=== PATIENT | male | born 1990 | race Caucasian/White ===

== ENCOUNTER 2018-11-17 11:21 | Emergency (ER) | payer SELFPAY ==
[~2018-11-17] VITALS: Ht 170.2 cm; Wt 81.6 kg
[2018-11-17 11:27] VITALS: BP_SYST 140
[2018-11-17] MEDS ORDERED: IBUPROFEN 600 MG TABLET PO ONE (11:30)
--- NOTE | 2018-11-17 11:30 | NUR ---
Patient to ER bed H1 to gown for evaluation. Side rails up.
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
--- NOTE | 2018-11-17 11:35 | NUR ---
Dr Manuel at bedside examining patient
[2018-11-17 11:39] VITALS: BP_SYST 140
--- NOTE | 2018-11-17 11:44 | NUR ---
Patient given written and verbal discharge instructions and verbalizes understanding. ER MD discussed with patient the results and treatment provided. Patient in stable condition. ID arm band removed. . Patient educated on pain management and to follow up with PMD. Pain Scale 3/10 tolerable for pt . Opportunity for questions provided and answered. Medication side effect fact sheet provided.
== END 2018-11-17 11:44 ==
LOC: SED 11:21
DX: M79.641 Pain in right hand (principal)
CPT/HCPCS: 99283